=== PATIENT | female | born 1990 | race Caucasian/White ===

== ENCOUNTER 2018-06-20 00:10 | Emergency (ER) | payer SELFPAY ==
[2018-06-20 00:11] VITALS: BMI 32.0
[2018-06-20 00:29] VITALS: RESP 18; O2SAT 99
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
[2018-06-20 06:47] VITALS: BP 114/62; PULSE 89; TEMP 99.1
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
== END 2018-06-20 02:10 | disposition home or self-care (01) ==
LOC: H.ER 00:10
DX: S43.402A Unspecified sprain of left shoulder joint, initial encounter (principal); S60.222A Contusion of left hand, initial encounter; S63.612A Unspecified sprain of right middle finger, initial encounter; Y04.0XXA Assault by unarmed brawl or fight, initial encounter; Y92.89 Other specified places as the place of occurrence of the external cause